=== PATIENT | male | born 1935 | race Native Hawaiian/Other Pacific Islander ===

== ENCOUNTER 2019-04-03 21:48 | Outpatient (CLI) | payer OTHER ==
[~2019-04-03 21:48] MED LIST: ADULT ASPIRIN R81 MG PO; ARTIFICIAL TEAR1.4 % IO; CITALOPRAM10 M1 PO; CYAN10009 IM; DORZOL/TIMOL1 ML OPTH; ESCI10TA PO; FINA5TAB2 PO; LATANOPROST0.005 % OPTH; MELATONIN10 M1 PO; METF500T PO; METFORMIN ER1000 MG PO; TAMS0.4C PO; TAMSULOSIN0.4 MG PO; WELLBUTRIN SR 100MG PO
== END 2019-04-03 22:55 | disposition short-term general hospital (02) ==
LOC: AMB 21:48
DX: S72.8X1A Other fracture of right femur, initial encounter for closed fracture (principal)
CPT/HCPCS: A0425; A0427